=== PATIENT | male | born 1970 | race Two or more races ===

== ENCOUNTER 2019-11-30 05:45 | Day surgery (SDC) | payer OTHER ==
[~2019-11-30 05:45] MED LIST: OMEPRAZOLE MAGN20 MG PO; PEPCID AC10 MG PO; TOPROL XL100 M1 PO; ZESTRIL20 MG PO
[2019-11-30] MEDS ORDERED: PERCOCET 5-3251 EACH PO (08:22)
[2019-11-30] MEDS ORDERED: RECTICARE30 GM TOP (08:23)
== END 2019-11-30 13:25 | disposition home or self-care (01) ==
LOC: CIR.AMB 05:45
PROVIDERS: ATTEND Surgery
DX: K60.3 Anal fistula (principal)

== ENCOUNTER 2024-07-16 10:26 | Outpatient (CLI) | payer OTHER ==
[~2024-07-16 10:26] MED LIST changes: +PERCOCET 5-3251 EACH PO; +RECTICARE30 GM TOP
== END 2024-07-16 10:30 | disposition home or self-care (01) ==
LOC: TOM 10:26
DX: E03.9 Hypothyroidism, unspecified (principal); G47.33 Obstructive sleep apnea (adult) (pediatric); J31.1 Chronic nasopharyngitis; K21.9 Gastro-esophageal reflux disease without esophagitis